=== PATIENT | male | born 1945 | race Caucasian/White ===

== ENCOUNTER → 2017-03-18 | Outpatient (CLI) | payer OTHER | END | disposition home or self-care (01) | LOC: PCVCCLINIC 12:09 | PROVIDERS: ATTEND Internal Medicine Cardiovascular Disease | DX: I10 Essential (primary) hypertension (principal); E78.5 Hyperlipidemia, unspecified; E11.9 Type 2 diabetes mellitus without complications; I30.0 Acute nonspecific idiopathic pericarditis; Z79.82 Long term (current) use of aspirin; Z79.4 Long term (current) use of insulin; Z82.49 Family history of ischemic heart disease and other diseases of the circulatory system; Z79.84 Long term (current) use of oral hypoglycemic drugs; Z88.8 Allergy status to other drugs, medicaments and biological substances | CPT/HCPCS: 80061; 93005; G0463 ==

== ENCOUNTER → 2017-12-16 | Outpatient (CLI) | payer OTHER | END | disposition home or self-care (01) | LOC: PCVCCLINIC 12:12 | DX: I10 Essential (primary) hypertension (principal); E78.5 Hyperlipidemia, unspecified; R94.31 Abnormal electrocardiogram [ECG] [EKG]; Z79.899 Other long term (current) drug therapy | CPT/HCPCS: 80061; 93005; G0463 ==

== ENCOUNTER → 2018-07-07 | Outpatient (CLI) | payer BC | END | disposition home or self-care (01) | LOC: PCVCCLINIC 14:33 | PROVIDERS: ATTEND Internal Medicine Cardiovascular Disease | DX: I10 Essential (primary) hypertension (principal); R42 Dizziness and giddiness; E78.5 Hyperlipidemia, unspecified; Z85.89 Personal history of malignant neoplasm of other organs and systems; E11.9 Type 2 diabetes mellitus without complications; Z79.82 Long term (current) use of aspirin | CPT/HCPCS: 80061; 93005; G0463 ==

== ENCOUNTER → 2019-02-08 | Outpatient (CLI) | payer BC ==
--- NOTE | 2019-02-08 16:03 | PCVCIMAG ---
APPROVED REPORT Study performed: 02/08/2019 15:01:08 EXAM: Comprehensive 2D, Doppler, and color-flow Echocardiogram Patient Location: Echo lab Status: routine BSA: 1.90 HR: 62 bpmBP: 98/52 mmHg Rhythm: NSR Other Information Study Quality: Adequate Risk Factors: Cardiac Risk Factors: HTN, Hyperlipidemia, DM Indications Aortic Valve Disease 2D Dimensions LVOT Diam: 22.51 (18-24mm) LV Single Plane 4CH: 34.47 % Aortic Valve AoV Peak Ghulam.: 3.19 m/s AO Peak Gr.: 40.68 mmHgLVOT Max P.25 mmHg AO Mean Gr.: 23.30 mmHgLVOT Mean P.08 mmHg AO V2 Mean: 2.31 m/sLVOT Max V: 0.90 m/s AO V2 VTI: 65.65 cmLVOT Mean V: 0.70 m/s JACKELIN (VTI): 1.26 [id number] V1 VTI: 20.87 cm JACKELIN Vmax: 1.12 cm2 AI Vmax: 4.74 m/sSV (LVOT): 83.04 mL AI [place]: 3.56 m/s2 AI PHT: 385.77 ms Left Ventricle mildly dilated Apical anterior wall hypokinesis. LVEF is 20-25%. Aortic Valve Aortic valve leaflets are moderately thickened. Peak gradient is 41mmHg. Mean gradient is 23mmHg. Calculated valve area is 1.1cm2. Mild to moderate aortic regurgitation. Mitral Valve Trace mitral regurgitation. Tricuspid Valve mild Pericardium no effusion <Conclusion> mildly dilated Apical anterior wall hypokinesis. LVEF is 20-25%. Aortic valve leaflets are moderately thickened. Peak gradient is 41mmHg. Mean gradient is 23mmHg. Calculated valve area is 1.1cm2. Mild to moderate aortic regurgitation. Trace mitral regurgitation. mild no effusion
== END | disposition home or self-care (01) ==
LOC: PCVCIMAG 16:55
PROVIDERS: ATTEND Internal Medicine Cardiovascular Disease
DX: I35.1 Nonrheumatic aortic (valve) insufficiency (principal)
CPT/HCPCS: 93308

== ENCOUNTER → 2019-02-18 | Outpatient (CLI) | payer BC | END | disposition home or self-care (01) | LOC: PCVCCLINIC 14:20 | PROVIDERS: ATTEND Internal Medicine Cardiovascular Disease | DX: I25.10 Atherosclerotic heart disease of native coronary artery without angina pectoris (principal); E11.9 Type 2 diabetes mellitus without complications; I25.5 Ischemic cardiomyopathy; I95.9 Hypotension, unspecified; I11.0 Hypertensive heart disease with heart failure; I50.23 Acute on chronic systolic (congestive) heart failure; Z88.8 Allergy status to other drugs, medicaments and biological substances; Z88.4 Allergy status to anesthetic agent | CPT/HCPCS: 93005; G0463 ==